=== PATIENT | female | born 1935 | race Caucasian/White ===

== ENCOUNTER 2023-06-12 13:05 | Outpatient (AMB) | payer MEDICARE, BC, SELFPAY ==
[2023-06-12 13:09] VITALS: BP 118/80; PULSE 62; O2SAT 98; BMI 27.9
--- NOTE | 2023-06-12 13:09 | A.OFFVIS_ITS ---
Intake Vital Signs 06/12/23 13:09 Height 5 ft 2 in Weight 152 lb 8 oz BMI 27.9 BP 118/80 Blood Pressure Location Rt brachial Position Sitting Pulse 62 Pulse Source Pulse Oximeter Pulse Oximetry (%) 98 Oxygen Delivery Method Room Air Intake Visit Reasons: [id number] Intake Note: Pt presents as a NPV for dementia. 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 The first episode was 7 months ago she was confused and disoriented- she went to [facility] ER, all her evaluations were inconclusive and the confusion resolve din 6 hrs. her magnesium level was low at that time. 2 weeks later she had another episode lasting 4 hrs - she tested COVID positive at that time. she was diagnosed with dementia 25 years ago and has been on donepezil 10mg since then. she has severe short term memory issues , has trouble following directions comprehending etc. she can take care of herself but does not do any chores around the house. SHe denies any family h/o dementia she has h/u subdural hematoma many years ago.She denies depression or anxiety. No behavior issues. She has mild sleep apnea but could not tolerate CPAP.No hallucinations PFSH Medical History (Updated 06/12/23 @ 14:10 by Brynn Victoria MD) Atrial fibrillation Breast cancer CKD (chronic kidney disease) Confusion Dementia GERD (gastroesophageal reflux disease) HTN (hypertension) Hyperlipidemia Osteoporosis Sick sinus syndrome Surgical History H/O: hysterectomy History of brain surgery Hx of appendectomy Pacemaker Social History Alcohol intake: never Patient Tobacco Use Status: Former Tobacco user Review of Systems Const Reports no additional complaints Eyes Reports blurry vision Card Reports irregular heart rhythm Neuro Reports confusion and Reports memory loss Psych Reports confusion and Reports memory loss Physical Exam Vital Signs: Last Vital Signs Pulse 62 06/12/23 13:09 BP 118/80 06/12/23 13:09 Pulse Ox 98 06/12/23 13:09 Oxygen Delivery Method Room Air 06/12/23 13:09 BMI result Body Mass Index 27.9 Const General: cooperative, healthy appearing, comfortable and confusion Orientation/consciousness: patient oriented x3 and confusion Eyes Pupils: Equal, round and reactive pupils present Neuro General: patient oriented x3, gait normal, tone normal, moves all extremities and confusion Cranial nerves: Yes Facial sensation intact/muscles of mastication intact, Yes Equal, round and reactive pupils present, Yes Bilaterally intact EOM present, Yes Nystagmus not present, Yes Normal facial strength present and Yes Midline tongue present Cognition (Neuro): abnormal cognition Gait exam (Neuro): Antalgic gait present Motor exam (neuro): 5/5 motor strength present throughout and Normal motor muscle tone present throughout Deep tendon reflexes (DTR's): Right triceps reflex intensity grade: 1+, Left triceps reflex intensity grade: 1+, Rt Biceps (C5, C6): 1+, Left biceps reflex intensity grade: 1+, Right brachioradialis reflex intensity grade: 1+, Left brachioradialis reflex intensity grade: 1+, Right patellar reflex intensity grade: 1+ and Left patellar reflex intensity grade: 1+ Coordination: [id number]-[id number] test normal Orientation What is the (year) (season) (date) (day) (month)?: season Where are we (state) (county) (town or city) (hospital) (floor)?: state, hospital/clinic and floor Registration Name of 3 unrelated objects clearly and slowly, then ask patient to repeat all 3 of them. (1st repeat determines score. Make sure they can repeat all three): object 1, object 2 and object 3 Attention & Calculation (CHOOSE ONE) Spell WORLD backwards (DLROW): 3 letters Recall Ask patient to repeat the 3 items from question #3.: object 1 Language Show patient a wristwatch & ask what it is. Repeat for pencil.: watch and pencil Ask the patient to repeat the phrase 'No ifs, ands, or buts' after you.: correct Ask the patient to 'take a piece of paper with their right hand' 'fold paper in half' 'place paper on floor': take paper in right hand and fold paper in half Print the sentence 'CLOSE YOUR EYES' on a piece. If patient actually closes eyes then score.: followed written direction Give patient a blank piece of paper & ask to write a sentence. Score if it contains a noun & verb.: sentence contains subject and verb Ask patient to copy figure of intersecting pentagons exactly. Score if all 10 angles & 2 intersects are included.: all 10 angles present & 2 are intersected Score Score: 19 Assessment & Plan Assessment & Plan (1) Dementia: Code(s): F03.90 - Unspecified dementia, unspecified severity, without behavioral disturbance, psychotic disturbance, mood disturbance, and anxiety (2) Confusion: Comment: likely metabolic Code(s): R41.0 - Disorientation, unspecified Plan Continue aricept 10mg qd EEG to r/o seizures I will trial her on namenda XR 7mg qd Orders: Orders EEG electroencephalogram Today R41.0 - Disorientation, unspecified Medications: New memantine 7 mg PO DAILY 30 ea 2RF Coding Level of Care Code New Pt Level 4 (74478) Diagnoses Dementia F03.90 Confusion R41.0
== END 2023-06-12 13:56 | disposition home or self-care (01) ==
PROVIDERS: Visit Provider Psychiatry & Neurology Neurology
DX: F03.90 Unspecified dementia, unspecified severity, without behavioral disturbance, psychotic disturbance, mood disturbance, and anxiety (principal); R41.0 Disorientation, unspecified
CPT/HCPCS: 99204

== ENCOUNTER → 2023-06-12 13:05 | Outpatient (BNVA) | payer MEDICARE, BC, SELFPAY | PROVIDERS: Visit Provider Psychiatry & Neurology Neurology | DX: F03.90 Unspecified dementia, unspecified severity, without behavioral disturbance, psychotic disturbance, mood disturbance, and anxiety (principal); R41.0 Disorientation, unspecified; I48.91 Unspecified atrial fibrillation; I49.5 Sick sinus syndrome; Z95.0 Presence of cardiac pacemaker | CPT/HCPCS: 99202 ==

== ENCOUNTER 2023-06-28 12:28 | Outpatient (REF) | payer MEDICARE, BC, SELFPAY ==
--- NOTE | 2023-06-28 12:43 | EEG_ITS ---
This is a 16-channel EEG with an EKG lead. The patient is reported awake and confused during the tracing. Background EEG rhythm is 10 to 12 hertz 5 to 20 microvolt posteriorly with frequent movement and muscle artifacts. No obvious sharp wave spikes or paroxysmal tendency noted. Photic stimulation does not produce any significant abnormality. Hyperventilation is not performed. Cardiac lead revealed bradycardia with a rate of about 60 per minute. No definite sharp wave spikes or paroxysmal tendency noted. IMPRESSION: No significant abnormality or any sign of epilepsy noted on this EEG. MD YRN Reis/KENDRA / [id number]
== END 2023-06-28 12:29 | disposition home or self-care (01) ==
LOC: HO.NEURO 12:28
PROVIDERS: PCP Internal Medicine; Visit Provider Psychiatry & Neurology Neurology
DX: R41.0 Disorientation, unspecified (principal)
CPT/HCPCS: 95816

== ENCOUNTER 2023-09-18 12:41 | Outpatient (AMB) | payer MEDICARE, BC, SELFPAY ==
--- NOTE | 2023-09-18 12:58 | A.OFFVIS_ITS ---
Intake Vital Signs 09/18/23 12:59 Respiration 16 Pulse 64 Pulse Source Pulse Oximeter Pulse Oximetry (%) 96 Oxygen Delivery Method Room Air Intake Visit Reasons: 3m f/u Dementia - Conf w/ Intake Note: Pt presents to the office for a 3 month follow up for confusion. She is here with her , Sarahy. He reports her condition is unchanged since her last visit. He reports a change in her meds- she has been take off Coumadin and started on Eliquis. 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 No epsidoes of confusion but her cognition is worse.No change in behavior. she was diagnosed with dementia 25 years ago and has been on donepezil 10mg since then. she has severe short term memory issues , has trouble following directions comprehending etc. she can take care of herself but does not do any chores around the house. SHe denies any family h/o dementia she has h/u subdural hematoma many years ago.She denies depression or anxiety. No behavior issues. She has mild sleep apnea but could not tolerate CPAP.No hallucinations [facility] Medical History (Updated 06/12/23 @ 14:10 by Brynn Victoria MD) Confusion CKD (chronic kidney disease) Osteoporosis Hyperlipidemia Sick sinus syndrome GERD (gastroesophageal reflux disease) Dementia HTN (hypertension) Atrial fibrillation Breast cancer Surgical History History of brain surgery H/O: hysterectomy Pacemaker Hx of appendectomy Social History Alcohol intake: never Patient Tobacco Use Status: Former Tobacco user Review of Systems Neuro Reports confusion Psych Reports confusion Physical Exam Vital Signs: Last Vital Signs Pulse 64 09/18/23 12:59 Resp 16 09/18/23 12:59 Pulse Ox 96 09/18/23 12:59 Oxygen Delivery Method Room Air 09/18/23 12:59 Const General: cooperative, healthy appearing, comfortable and confusion Orientation/consciousness: patient oriented x3 and confusion Eyes Pupils: Equal, round and reactive pupils present Neuro General: patient oriented x3, gait normal, tone normal, moves all extremities and confusion Cranial nerves: Yes Facial sensation intact/muscles of mastication intact, Yes Equal, round and reactive pupils present, Yes Bilaterally intact EOM present, Yes Nystagmus not present, Yes Normal facial strength present and Yes Midline tongue present Cognition (Neuro): abnormal cognition Gait exam (Neuro): Antalgic gait present Motor exam (neuro): 5/5 motor strength present throughout and Normal motor muscle tone present throughout Coordination: [id number]-[id number]-[id number] test normal Assessment & Plan Assessment & Plan (1) Dementia: Code(s): F03.90 - Unspecified dementia, unspecified severity, without behavioral disturbance, psychotic disturbance, mood disturbance, and anxiety (2) Confusion: Comment: likely metabolic Code(s): R41.0 - Disorientation, unspecified Plan Continue aricept 10mg qd EEG normal Increase namenda XR 14mg qd Medications: Changed From memantine 7 mg PO DAILY 30 ea 2RF To memantine 14 mg PO DAILY 30 ea 0RF Coding Level of Care Code Est Pt Level 4 (02291) Diagnoses Dementia F03.90 Confusion R41.0
[2023-09-18 12:59] VITALS: PULSE 64; RESP 16; O2SAT 96
== END 2023-09-18 13:46 | disposition home or self-care (01) ==
PROVIDERS: PCP Internal Medicine; Visit Provider Psychiatry & Neurology Neurology
DX: F03.90 Unspecified dementia, unspecified severity, without behavioral disturbance, psychotic disturbance, mood disturbance, and anxiety (principal); R41.0 Disorientation, unspecified
CPT/HCPCS: 99214

== ENCOUNTER → 2023-09-18 12:41 | Outpatient (BNVA) | payer MEDICARE, BC, SELFPAY | PROVIDERS: PCP Internal Medicine; Visit Provider Psychiatry & Neurology Neurology | DX: F03.90 Unspecified dementia, unspecified severity, without behavioral disturbance, psychotic disturbance, mood disturbance, and anxiety (principal); R41.0 Disorientation, unspecified | CPT/HCPCS: 99212 ==

== ENCOUNTER 2024-04-28 14:17 | Outpatient (AMB) | payer MEDICARE, BC, SELFPAY ==
[2024-04-28 14:23] VITALS: BP 136/78; PULSE 81; RESP 16; O2SAT 97; BMI 28.9
--- NOTE | 2024-04-28 14:23 | MHC.OFFVIS ---
Vital Signs 04/28/24 14:23 Height 5 ft 2 in Weight 158 lb 2 oz BMI 28.9 BP 136/78 Blood Pressure Location Rt brachial Position Sitting Respiration 16 Pulse 81 Pulse Source Pulse Oximeter Pulse Oximetry (%) 97 Oxygen Delivery Method Room Air Intake Visit Reasons: Follow up - LVM w/add Intake Note: Pt presents for 6 month follow up for dementia, confusion. Marina Porter Required: No Allergies No Known Allergies Allergy (Verified 04/28/24 14:23) HPI Comments Details: 88y/o female comes for follow up of dementia. her short term memory is worse and has difficulty comprehending. SHe was in ER last night for confusion.she was dehydrated .CT was negative she has back pain and is on ibuprofen No falls she was diagnosed with dementia 25 years ago and has been on donepezil 10mg since then. she has severe short term memory issues , has trouble following directions comprehending etc. she can take care of herself but does not do any chores around the house. SHe denies any family h/o dementia she has h/u subdural hematoma many years ago.She denies depression or anxiety. No behavior issues. She has mild sleep apnea but could not tolerate CPAP.No hallucinations Her is working with senior services and Assisted living. [facility] Medical History Confusion CKD (chronic kidney disease) Osteoporosis Hyperlipidemia Sick sinus syndrome GERD (gastroesophageal reflux disease) Dementia HTN (hypertension) Atrial fibrillation Breast cancer Surgical History History of brain surgery H/O: hysterectomy Pacemaker Hx of appendectomy Social History Alcohol intake: never Patient Tobacco Use Status: Former Tobacco user Review of Systems Neuro Reports confusion Psych Reports confusion Physical Exam Vital Signs: Last Vital Signs Pulse 81 04/28/24 14:23 Resp 16 04/28/24 14:23 BP 136/78 04/28/24 14:23 Pulse Ox 97 04/28/24 14:23 Oxygen Delivery Method Room Air 04/28/24 14:23 BMI result Body Mass Index 28.9 Const General: cooperative, healthy appearing, comfortable and confusion Orientation/consciousness: patient oriented x3 and confusion Eyes Pupils: Equal, round and reactive pupils present Neuro General: patient oriented x3, gait normal, tone normal, moves all extremities and confusion Cranial nerves: Yes Facial sensation intact/muscles of mastication intact, Yes Equal, round and reactive pupils present, Yes Bilaterally intact EOM present, Yes Nystagmus not present, Yes Normal facial strength present and Yes Midline tongue present Cognition (Neuro): abnormal cognition Gait exam (Neuro): Antalgic gait present Motor exam (neuro): 5/5 motor strength present throughout and Normal motor muscle tone present throughout Coordination: [id number]-[id number]-[id number] test normal Assessment & Plan Assessment & Plan (1) Dementia: Code(s): F03.90 - Unspecified dementia, unspecified severity, without behavioral disturbance, psychotic disturbance, mood disturbance, and anxiety Category: Medical (2) Confusion: Comment: likely metabolic Code(s): R41.0 - Disorientation, unspecified Category: Medical Plan Continue aricept 10mg qd continue namenda XR 14mg qd Coding Level of Care Code Est Pt Level 4 (83528) Diagnoses Dementia F03.90 Confusion R41.0
== END 2024-04-28 14:49 | disposition home or self-care (01) ==
PROVIDERS: PCP Internal Medicine; Visit Provider Psychiatry & Neurology Neurology
DX: F03.90 Unspecified dementia, unspecified severity, without behavioral disturbance, psychotic disturbance, mood disturbance, and anxiety (principal); R41.0 Disorientation, unspecified
CPT/HCPCS: 99214

== ENCOUNTER → 2024-04-28 14:17 | Outpatient (BNVA) | payer MEDICARE, BC, SELFPAY | PROVIDERS: PCP Internal Medicine; Visit Provider Psychiatry & Neurology Neurology | DX: F03.90 Unspecified dementia, unspecified severity, without behavioral disturbance, psychotic disturbance, mood disturbance, and anxiety (principal); R41.0 Disorientation, unspecified | CPT/HCPCS: 99212 ==

== ENCOUNTER 2025-04-07 09:01 | Outpatient (REF) | payer MEDICARE, BC, SELFPAY ==
--- NOTE | ~2025-04-07 | CT_ITS ---
EXAMINATION: CT HEAD WITHOUT CONTRAST CLINICAL INFORMATION: R41.0 - Disorientation, unspecifiedhistory of subdural hematoma. COMPARISON: None available. TECHNIQUE: Contiguous axial imaging was performed from the skull base to vertex without intravenous administration of contrast. This CT examination was performed using dose optimization techniques as appropriate, variously including the following: *Automated exposure control *Adjustment of mA and/or kV according to patient size (this includes techniques or standardized protocols for targeted exams where dose is matched to indication/reason for exam; i.e. extremities or head) *Use of iterative reconstruction technique DLP: 588 mGy-cm FINDINGS: No acute intracranial hemorrhage. Left frontoparietal zachery hole and extra-axial calcifications likely in the subdural compartment just lateral from the left sylvian fissure left frontal temporal convexity.. No acute fracture, bony calvarium. There is a 5 mm extra-axial hyperdensity/partially calcified soft tissue attenuation right frontoparietal convexity. Prominence of the extra-axial CSF spaces cerebral sulci bifrontal and bitemporal lobes. Bilateral multifocal patchy and confluent deep periventricular white matter hypodensities involving centrum semiovale and jarvis radiata. Old lacunar infarct, basal ganglia and extracapsular. Calcified plaques in the V4 segments of the vertebral arteries and cavernous supraclinoid segments both ICAs. Posterior cranial fossa contents demonstrated no acute intracranial hemorrhage. Craniocervical junction demonstrates normal position of the cerebellar tonsils. Sellar/suprasellar region demonstrated no gross masses. No air-fluid levels in the paranasal sinuses. Tympanic cavities and mastoid cells are aerated. Degenerative changes in the left temporal mandibular joint. CT/CT head/brain wo IV con IMPRESSION: No acute intracranial hemorrhage. Small vessel occlusive disease. Bifrontal/bitemporal lobe atrophy. 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 Electronically signed by: Schuyler Sultana MD 04/07/2025 10:33 AM EDT
--- OUTSIDE RECORDS SUMMARY | 2025-04-07 09:29 | XMS_ITS | Clinical Summary ---
Author Organization [facility] Address [address] [address] Phone Care Team Providers Care Glass Curvature Gauger Name Role Phone Diony Ga Primary Care Provider [phone] Allergies Active Allergy Reactions Criticality Noted Date Comments Codeine Other (see comments) 12/27/2022 Fexofenadine 12/27/2022 Other reaction(s): shaking Nitrofurantoin Other (see comments) 12/27/2022 Medications dilTIAZem (TIAZAC) 180 MG 24 hr capsule 3 Active metoprolol tartrate (LOPRESSOR) 50 MG tablet Take 50 mg by mouth 6 Active SIMVASTATIN PO Take 40 mg by mouth 1 Active valsartan (DIOVAN) 160 MG tablet Take 160 mg by mouth 1 (one) time each day Active donepezil (ARICEPT) 10 MG tablet Take 10 mg by mouth every night Active Multiple Vitamin (multivitamin) capsule Take 1 capsule by mouth 1 (one) time each day Active apixaban (Eliquis) 2.5 MG tablet Take 2.5 mg by mouth in the morning and 2.5 mg in the evening. Active Memantine HCl ER 14 MG capsule sustained-rele ase 24 hr Take 14 mg by mouth 1 (one) time each day 4 Active Denosumab (Prolia) 60 MG/ML solution prefilled syringe Inject 60 mg under the skin 5 Active Coenzyme Q10 100 MG tablet Take by mouth Active cyanocobalamin (VITAMIN B-12) 100 MCG tablet Take 50 mcg by mouth 1 (one) time each day Active Coconut Oil ([facility] Coconut Oil) 1000 MG capsule Take by mouth Active alendronate (FOSAMAX) 70 MG tablet 3 03/24/20 25 Discontinued( Discontinued by another clinician (does not appear on AVS)) Active Problems Problem Noted Date Diagnosed Date Tumor finding 12/27/2022 Neoplasm of breast 12/27/2022 Overview (08/12/2024): Replacing diagnoses that were inactivated after the 08/12/24 Regulatory Import Essential (primary) hypertension 12/27/2022 Hypercholesterolemia 12/27/2022 History of cerebrovascular accident 12/27/2022 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 Stable. Atrial fibrillation 10/12/2021 Overview (12/27/2022): Last Assessment & Plan: Rate is controlled on BB and CCB, anticoagulated on warfarin. She understands risks and benefits of anticoagulation and wished to continue. Encounters Date Type Department Care Team Description 03/24/2025 11:30 AM EDT Office Visit [facility] [address] [address] Deirdre Banuelos ARNP Stage 3b chronic kidney disease (HCC) (Primary Dx); Essential (primary) hypertension 03/12/2025 Orders Only [facility] [place] [id number] [phone] Deirdre Banuelos ARNP Stage 3b chronic kidney disease (HCC); Essential (primary) hypertension from Last 3 Months Immunizations Immunization Administration Dates Next Due Pfizer SARS-COV-2 01/13/2021,12/23/2020 Family History Medical History Relation Comments Heart disease Father Relation Status Comments Father Social History Tobacco Use Types Packs/Day Years Used Date Smoking Tobacco: Never Smokeless Tobacco: Never Tobacco Cessation:Counseling Given: No Alcohol Use Standard Drinks/Week Comments Never 0 (1 standard drink = 0.6 oz pur e alcohol) Comments Unknown Sex and Gender Information Value Date Recorded Sex Assigned at Not on file Legal Sex Female 8:36 AM EST Gender Identity Not on file Sexual Orientation Not on file Last Filed Vital Signs Vital Sign Reading Time Taken Comments Blood Pressure 120/60 03/24/2025 11:53 AM EDT Pulse 70 03/24/2025 11:29 AM EDT Temperature - - Respiratory Rate - - Oxygen Saturation 98% 03/24/2025 11:29 AM EDT Inhaled Oxygen Concentration - - Weight 67.1 kg (148 lb) 03/24/2025 11:29 AM EDT Height - - Body Mass Index - - Plan of Treatment Upcoming Encounters Date Type Department Care Team (Late st Contact Info) Description 09/22/2025 1:00 PM EST Office Visit [facility] [address] [phone] Deirdre Banuelos ARNP [address] [address] Health Maintenance Due Date Last Done Comments Pneumococcal Vaccine: 50+ Ye ars (1 of 2 - PCV) 1954 Influenza Vaccine (Season Ended) 2025 Hepatitis B Vaccine Aged Out No longe r eligible based on patient's age to complete this topic Procedures Procedure Name Priority Date/Time Associated Diagnosis Comments PROTEIN, URINE, RANDOM Routine 03/19/2025 3:44 PM EDT CREATININE, URINE, RANDOM Routine 03/19/2025 3:44 PM EDT CBC WITH AUTO DIFFERENTIAL Routine 03/18/2025 11:00 AM EDT RENAL FUNCTION PANEL Routine 03/18/2025 11:00 AM EDT Stage 3b chronic kidney disease (HCC) Essential (primary) hypertension PTH, INTACT Routine 03/18/2025 11:00 AM EDT Stage 3b chronic kidney disease (HCC) Essential (primary) hypertension from Last 3 Months Results * Protein, urine, random (03/19/2025 3:44 PM EDT) Protein, Ur 14 mg/dL [facility] 03/19/2025 3:44 PM EDT 03/19/2025 7:17 PM EDT [facility] URINE ORDERABLES Final Result Performing Organization Address City/[facility]/ZIP Co de Phone Number [facility] [address] [place] [address] * Creatinine, urine, random (03/19/2025 3:44 PM EDT) Creatinine, Urine 68.0 mg/dL [facility] 03/19/2025 3:44 PM EDT 03/19/2025 7:17 PM EDT us [facility] URINE ORDERABLES Final Result Performing Organization Address City/[facility] Co de Phone Number [facility] [address] [place] [address] * (ABNORMAL) CBC auto differential (03/18/2025 11:00 AM EDT) WBC 5.1 4.8 - 10.8 K/[facility] RBC 4.30 3.80 - 4.80 M/[facility] Hgb 12.1 11.5 - 16.0 g/dL [facility] Hematocrit 38.5 35.0 - 47.0 % [facility] MCV 90.0 79.0 - 98.0 FL [facility] MCH 28.3 27.0 - 32.0 pcg [facility] MCHC 31.4(L) 32.0 - 37.0 g/dL [facility] RDW 14.6 11.0 - 15.0 % [facility] Platelets 202 130 - 400 K/[facility] MPV 10.8 7.0 - 11.0 FL [facility] nRBC Count 0.0 <1.0 % [facility] NRBC Absolute 0.00 <0.10 K/[facility] Bands Relative 56.8 % [facility] Lymphocyte Realative Percent 26.7 % [facility] Monocyte Relative Percent 11.4 % [facility] Eosinophil Relative Percent 3.1 % [facility] Basophils Relative Diff 1.8 % [facility] Immature Granulocytes 0.2 % [facility] Neutrophils Absolute 2.89 1.50 - 7.00 K/[facility] Lymphocytes Absolute 1.36 1.00 - 5.00 K/[facility] Monocytes Absolute 0.58 0.20 - 1.00 [facility] Eosinophil Absolute 0.16 0.00 - 0.50 [facility] Basophil ABS 0.09 0.00 - 0.20 [facility] Immature Grans (Absolute) 0.01 0.00 - 0.03 K/[facility] 03/18/2025 11:0 0 AM EDT 03/18/2025 3:03 PM EDT us Deirdre AGUILAR LAB BLOOD ORDERABLES Final Result [facility] [address] [place] [address] * (ABNORMAL) PTH, intact (03/18/2025 11:00 AM EDT) PTH 97.3(H) 18.5 - 88.0 pcg/mL [facility] Blood specimen (specimen) Venous blood / Unknown 03/18/2025 11:00 AM EDT 03/18/2025 3:03 PM EDT Deirdre Banuelos [facility] BLOOD ORDERABLES Final Result G[facility] [address] [place] [address] * (ABNORMAL) Renal function panel (03/18/2025 11:00 AM EDT) Pathologist [facility] Sodium 143 133 - 145 mmol/L [facility] Potassium 3.9 3.5 - 5.5 mmol/L [facility] Chloride 109 96 - 110 mmol/L [facility] Bicarbonate (CO2) 26 21 - 32 mmol/L [facility] Anion Gap 8 3 - 11 [facility] Glucose 93 70 - 100 mg/dL [facility] BUN 20 5 - 25 mg/dL [facility] Creatinine Serum 1.40(H) 0.50 - 1.10 mg/dL [facility] eGFR 36(L) >=60 mL/min/1. 73m2 [facility] Comment:Calculation based on the Chronic Kidney Disease Epidemiology Collaboration (CKD-EPI) equation refit without adjustment for race. BUN/Creatinine Ratio 14.3 [facility] Albumin 3.4 3.2 - 5.0 g/dL [facility] Calcium 9.9 8.5 - 10.5 mg/dL [facility] Phosphorus 3.5 2.5 - 4.5 mg/dL [facility] Blood specimen (specimen) Venous blood / Unknown 03/18/2025 11:00 AM EDT 03/18/2025 3:03 PM EDT Deirdre Banuelos [facility] LAB BLOOD ORDERABLES Final Result [facility] [address] [place] [address] from Last 3 Months Insurance Medicare [facility] Medicare [facility] Care Teams Glass Curvature Gauger Relationship Specialty Start Date End Date Diony Ga DO [address] [place] [address] PCP - General Internal Medicine 11/16/22
== END 2025-04-07 09:02 | disposition home or self-care (01) ==
LOC: HO.CT 09:01
PROVIDERS: PCP Internal Medicine; Visit Provider Psychiatry & Neurology Neurology
DX: R41.0 Disorientation, unspecified (principal); R51.9 Headache, unspecified; Z86.79 Personal history of other diseases of the circulatory system
CPT/HCPCS: 70450

== ENCOUNTER → 2025-04-07 09:02 | Outpatient (BNV) | payer MEDICARE, BC, SELFPAY | PROVIDERS: PCP Internal Medicine; Visit Provider Radiology Diagnostic Radiology | DX: I67.89 Other cerebrovascular disease (principal) | CPT/HCPCS: 70450 ==

== ENCOUNTER 2025-04-27 12:11 | Outpatient (AMB) | payer MEDICARE, BC, SELFPAY ==
--- NOTE | 2025-04-27 12:13 | A.OFFVIS_ITS ---
Vital Signs 04/27/25 12:14 Height 5 ft 2 in Weight 147 lb BMI 26.9 BP 110/72 Blood Pressure Location Rt brachial Position Sitting Pulse 60 Pulse Source Pulse Oximeter Pulse Oximetry (%) 98 Oxygen Delivery Method Room Air Intake Visit Reasons: Follow up - LVM w/add Intake Note: Patient following up for dementia Allergies No Known Allergies Allergy (Verified 04/27/25 12:17) Medication List - Last Reconciled 04/27/25 by Brynn Victoria MD apixaban (Eliquis) 2.5 mg PO BID denosumab (Prolia) 60 mg subcut [id number] diltiazem HCl ER 180 mg PO DAILY donepezil 10 mg PO DAILY memantine 14 mg PO DAILY 90 days metoprolol tartrate 50 mg PO BID multivitamin 1 tab PO DAILY simvastatin 40 mg PO BEDTIME valsartan 160 mg PO DAILY HPI Comments Details: 89y/o female comes for follow up of dementia and headaches CT head was normal she reports a frontal dull pain for past 4 mths. according to her she watches TV all day and she also does not drink enough water. she lives with her . He does all the chores. History from last visit- her short term memory is worse and has difficulty comprehending. SHe was in ER last night for confusion.she was dehydrated .CT was negative she has back pain and is on ibuprofen No falls she was diagnosed with dementia 25 years ago and has been on donepezil 10mg since then. she has severe short term memory issues , has trouble following directions comprehending etc. she can take care of herself but does not do any chores around the house. SHe denies any family h/o dementia she has h/u subdural hematoma many years ago.She denies depression or anxiety. No behavior issues. She has mild sleep apnea but could not tolerate CPAP.No hallucinations Her is working with senior services and Assisted living. [facility] Medical History (Updated 04/27/25 @ 12:57 by Brynn Victoria MD) Chronic headaches Cervicalgia H/O subdural hemorrhage Headache Confusion CKD (chronic kidney disease) Osteoporosis Hyperlipidemia Sick sinus syndrome GERD (gastroesophageal reflux disease) Dementia HTN (hypertension) Atrial fibrillation Breast cancer Surgical History History of brain surgery H/O: hysterectomy Pacemaker Hx of appendectomy Social History Alcohol intake: never Patient Tobacco Use Status: Former Tobacco user Review of Systems Neuro Reports confusion Psych Reports confusion Physical Exam Vital Signs: Last Vital Signs Pulse 60 04/27/25 12:14 BP 110/72 04/27/25 12:14 Pulse Ox 98 04/27/25 12:14 Oxygen Delivery Method Room Air 04/27/25 12:14 BMI result Body Mass Index 26.9 Const General: cooperative, healthy appearing, comfortable and confusion Orientation/consciousness: patient oriented x3 and confusion Eyes Pupils: Equal, round and reactive pupils present Neuro General: patient oriented x3, gait normal, tone normal, moves all extremities and confusion Cranial nerves: Yes Facial sensation intact/muscles of mastication intact, Yes Equal, round and reactive pupils present, Yes Bilaterally intact EOM present, Yes Nystagmus not present, Yes Normal facial strength present and Yes Midline tongue present Cognition (Neuro): abnormal cognition Gait exam (Neuro): Antalgic gait present Motor exam (neuro): 5/5 motor strength present throughout and Normal motor muscle tone present throughout Coordination: [id number] test normal Results Reviewed Results Reviewed: CT - brain 03/2025 No acute intracranial hemorrhage. Small vessel occlusive disease. Bifrontal/bitemporal lobe atrophy. 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 Assessment & Plan Assessment & Plan (1) Dementia: Comment: progressed Code(s): F03.90 - Unspecified dementia, unspecified severity, without behavioral disturbance, psychotic disturbance, mood disturbance, and anxiety Category: Medical (2) Confusion: Comment: likely metabolic Code(s): R41.0 - Disorientation, unspecified Category: Medical (3) Cervicalgia: Code(s): M54.2 - Cervicalgia Category: Medical (4) Chronic headaches: Code(s): R51.9 - Headache, unspecified; G89.29 - Other chronic pain Category: Medical Qualifiers: Headache type: unspecified Intractability: not intractable Qualified Code(s): R51.9 - Headache, unspecified; G89.29 - Other chronic pain Plan Continue aricept 10mg qd continue namenda XR 14mg qd He is discussing with insurance and will call senior services for MANAGER [employer] services PT for neck pain and headaches Orders: Orders PT Evaluation and Treatment Today M54.2 - Cervicalgia Referrals [facility] Referral G89.29 - Other chronic pain, M54.2 - Cervicalgia, R51.9 - Headache, unspecified Coding Level of Care Code Est Pt Level 4 (83142) Complex EM visit Add On G2211 Diagnoses Dementia F03.90 Confusion R41.0 Cervicalgia M54.2 Chronic nonintractable headache, unspecified headache type R51.9; G89.29 Headache type: unspecified Intractability: not intractable
[2025-04-27 12:14] VITALS: BP 110/72; PULSE 60; O2SAT 98; BMI 26.9
--- OUTSIDE RECORDS SUMMARY | 2025-04-27 13:35 | XMS_ITS | Clinical Summary ---
Author Organization [facility] Address [address] [address] Phone Care Team Providers Care Award Clerk Name Role Phone Diony Ga Primary Care Provider [phone] Allergies Active Allergy Reactions Criticality Noted Date Comments Codeine Other (see comments) 12/27/2022 Fexofenadine 12/27/2022 Other reaction(s): shaking Nitrofurantoin Other (see comments) 12/27/2022 Medications dilTIAZem (TIAZAC) 180 MG 24 hr capsule 11/28/2022 Activ e metoprolol tartrate (LOPRESSOR) 50 MG tablet Take 50 mg by mouth 01/07/2016 Active SIMVASTATIN PO Take 40 mg by mouth 10/05/2011 Active valsartan (DIOVAN) 160 MG tablet Take [...] Active Memantine HCl ER 14 MG capsule sustained-relea se 24 hr Take 14 mg by mouth 1 (one) time each day 07/03/2024 Active Denosumab (Prolia) 60 MG/ML solution prefilled syringe Inject 60 mg under the skin 11/13/2024 Active Coenzyme Q10 100 MG tablet Take by mouth Active cyanocobalamin (VITAMIN B-12) 100 MCG tablet Take 50 mcg by mouth 1 (one) time each day Active Coconut Oil ([facility] Coconut Oil) 1000 MG capsule Take by mouth Active Active Problems Problem Noted Date Diagnosed Date [...] Office Visit [facility] 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 [address] [place] [address] Deirdre Banuelos ARNP Stage 3b chronic kidney [...] Office Visit [facility] [address] [address] Deirdre Banuelos ARNP [address] [address] Health Maintenance Due Date Last [...] 3:44 PM EDT) Protein, Ur 14 mg/dL [facility] 03/19/2025 3:44 PM EDT 03/19/2025 7:17 PM EDT [facility] URINE ORDERABLES Final Result Performing Organization Address City/[facility]/ZIP Co de Phone Number [facility] [address] [place] [address] * Creatinine, urine, random (03/19/2025 3:44 PM EDT) [facility] Creatinine, Urine 68.0 mg/dL [facility] 03/19/2025 3:44 PM EDT 03/19/2025 7:17 PM EDT [facility] URINE ORDERABLES Final Result Performing Organization Address City/[facility] Co de Phone Number [facility] [address] [place] [address] * (ABNORMAL) CBC auto differential (03/18/2025 11:00 AM EDT) [facility] WBC 5.1 4.8 - 10.8 K/mcL [facility] RBC 4.30 3.80 - 4.80 M/[facility] Hgb 12.1 11.5 - 16.0 g/dL [facility] Hematocrit 38.5 35.0 - 47.0 % [facility] MCV 90.0 79.0 - 98.0 FL [facility] MCH 28.3 27.0 - 32.0 pcg [facility] MCHC 31.4(L) 32.0 - 37.0 g/dL [facility] RDW 14.6 11.0 - 15.0 % [facility] Platelets 202 130 - 400 K/[facility] MPV 10.8 7.0 - 11.0 FL [facility] nRBC Count 0.0 <1.0 % [facility] NRBC Absolute 0.00 <0.10 K/[facility] Bands Relative 56.8 % [facility] Lymphocyte Realative Percent 26.7 % [facility] Monocyte Relative Percent 11.4 % [facility] Eosinophil Relative Percent 3.1 % [facility] Basophils Relative Diff 1.8 % [facility] Immature Granulocytes 0.2 % [facility] Neutrophils Absolute 2.89 1.50 - 7.00 K/[facility] Lymphocytes Absolute 1.36 1.00 - 5.00 K/[facility] Monocytes Absolute 0.58 0.20 - 1.00 K/[facility] Eosinophil Absolute 0.16 0.00 - 0.50 K/[facility] Basophil ABS 0.09 0.00 - 0.20 K/[facility] Immature Grans (Absolute) 0.01 0.00 - 0.03 K/[facility] 03/18/2025 11:0 0 AM EDT 03/18/2025 3:03 PM EDT us Deirdre Banuelos [facility] BLOOD ORDERABLES Final Result [facility] [address] [place] [address] * (ABNORMAL) PTH, intact (03/18/2025 11:00 AM EDT) PTH 97.3(H) 18.5 - 88.0 pcg/mL [facility] Blood specimen (specimen) Venous blood / Unknown 03/18/2025 11:00 AM EDT 03/18/2025 3:03 PM EDT us Deirdre Banuelos [facility] BLOOD ORDERABLES Final Result GABRIELLE [facility] [address] [place] [address] * (ABNORMAL) Renal function panel (03/18/2025 11:00 AM EDT) Sodium 143 133 - 145 mmol/L [facility] Potassium 3.9 3.5 - 5.5 mmol/L [facility] Chloride 109 96 - 110 mmol/L [facility] Bicarbonate (CO2) 26 21 - 32 mmol/L [facility] Anion Gap 8 3 - 11 [facility] Glucose 93 70 - 100 mg/dL [facility] BUN 20 5 - 25 mg/dL [facility] Creatinine Serum 1.40(H) 0.50 - 1.10 mg/dL [facility] eGFR 36(L) >=60 mL/min/1. 73m2 [facility] Comment:Calculation based on the Chronic Kidney Disease Epidemiology Collaboration (CKD-EPI) equation refit without adjustment for race. BUN/Creatinine Ratio 14.3 [facility] Albumin 3.4 3.2 - 5.0 g/dL [facility] Calcium 9.9 8.5 - 10.5 mg/dL [facility] Phosphorus 3.5 2.5 - 4.5 mg/dL [facility] Blood specimen (specimen) Venous blood / Unknown 03/18/2025 11:00 AM EDT 03/18/2025 3:03 PM EDT Deirdre Banuelos [facility] BLOOD ORDERABLES Final Result Performing Organization Address City/State/[facility] Co de Phone Number GABRIELLE PAULA [facility] ([facility] [address] [place] [address] from Last 3 Months Insurance Medicare [facility] Medicare [facility] Care Teams Award Clerk Relationship Specialty Start Date End Date Diony Ga DO [address] [place] [address] PCP - General Internal Medicine 11/16/22
== END 2025-04-27 13:04 | disposition home or self-care (01) ==
LOC: HO.HSMS 12:12
PROVIDERS: PCP Internal Medicine; Visit Provider Psychiatry & Neurology Neurology
DX: F03.90 Unspecified dementia, unspecified severity, without behavioral disturbance, psychotic disturbance, mood disturbance, and anxiety (principal); R41.0 Disorientation, unspecified; M54.2 Cervicalgia; R51.9 Headache, unspecified; G89.29 Other chronic pain
CPT/HCPCS: 99214; G2211

== ENCOUNTER → 2025-04-27 12:11 | Outpatient (BNVA) | payer MEDICARE, BC, SELFPAY | PROVIDERS: PCP Internal Medicine; Visit Provider Psychiatry & Neurology Neurology | DX: F03.90 Unspecified dementia, unspecified severity, without behavioral disturbance, psychotic disturbance, mood disturbance, and anxiety (principal); R41.0 Disorientation, unspecified; M54.2 Cervicalgia; R51.9 Headache, unspecified; G89.29 Other chronic pain | CPT/HCPCS: 99212 ==

== ENCOUNTER → 2025-05-11 23:59 | Outpatient (BNV) | payer MEDICARE, BC, SELFPAY | PROVIDERS: PCP Internal Medicine; Visit Provider Psychiatry & Neurology Neurology | DX: M54.2 Cervicalgia (principal); N18.9 Chronic kidney disease, unspecified; I48.91 Unspecified atrial fibrillation; R51.9 Headache, unspecified; I12.9 Hypertensive chronic kidney disease with stage 1 through stage 4 chronic kidney disease, or unspecified chronic kidney disease | CPT/HCPCS: G0180 ==

== ENCOUNTER 2025-10-29 11:20 | Outpatient (AMB) | payer MEDICARE, BC, SELFPAY ==
[2025-10-29 11:22] VITALS: BP 138/76; PULSE 69; O2SAT 96; BMI 26.7
--- NOTE | 2025-10-29 11:22 | A.OFFVIS_ITS ---
Vital Signs 10/29/25 11:22 Height 5 ft 2 in Weight 146 lb 4 oz BMI 26.7 BP 138/76 Blood Pressure Location Rt brachial Position Sitting Pulse 69 Pulse Source Pulse Oximeter Pulse Oximetry (%) 96 Oxygen Delivery Method Room Air Intake Visit Reasons: 6 mnts f/u appt Intake Note: Follow up Cervicalgia, dementia, confusion and chronic headache Manager Of Sales Required: No Accompanied by: Spouse Allergies No Known Allergies Allergy (Verified 10/29/25 11:22) Medication List - Last Reconciled 10/29/25 by Brynn Victoria MD apixaban (Eliquis) 2.5 mg PO BID denosumab (Prolia) 60 mg subcut [id number] diltiazem HCl ER 180 mg PO DAILY donepezil 10 mg PO DAILY memantine 14 mg PO DAILY metoprolol tartrate 50 mg PO BID multivitamin 1 tab PO DAILY simvastatin 40 mg PO BEDTIME valsartan 160 mg PO DAILY HPI Comments Details: 89y/o female comes for follow up of dementia and headaches Her says she is worse- they have help 3 days a week .Patient resists help . CT head was normal the headaches have decreased significantly after PT she does not drink water. she lives with her . He does all the chores. History from initial visit-2022 her short term memory is worse and has difficulty comprehending. SHe was in ER last night for confusion.she was dehydrated .CT was negative she has back pain and is on ibuprofen No falls she was diagnosed with dementia 25 years ago and has been on donepezil 10mg since then. she has severe short term memory issues , has trouble following directions comprehending etc. she can take care of herself but does not do any chores around the house. SHe denies any family h/o dementia she has h/u subdural hematoma many years ago.She denies depression or anxiety. No behavior issues. She has mild sleep apnea but could not tolerate CPAP.No hallucinations Her is working with senior services and Assisted living. [facility] Medical History Chronic headaches Cervicalgia H/O subdural hemorrhage Headache Confusion CKD (chronic kidney disease) Osteoporosis Hyperlipidemia Sick sinus syndrome GERD (gastroesophageal reflux disease) Dementia HTN (hypertension) Atrial fibrillation Breast cancer Surgical History History of brain surgery H/O: hysterectomy Pacemaker Hx of appendectomy Social History Alcohol intake: never Patient Tobacco Use Status: Former Tobacco user Review of Systems Neuro Reports confusion Psych Reports confusion Physical Exam Vital Signs: Last Vital Signs Pulse 69 10/29/25 11:22 BP 138/76 10/29/25 11:22 Pulse Ox 96 10/29/25 11:22 Oxygen Delivery Method Room Air 10/29/25 11:22 BMI result Body Mass Index 26.7 Const General: cooperative, healthy appearing, comfortable and confusion Orientation/consciousness: patient oriented x3 and confusion Eyes Pupils: Equal, round and reactive pupils present Neuro General: patient oriented x3, gait normal, tone normal, moves all extremities and confusion Cranial nerves: Yes Facial sensation intact/muscles of mastication intact, Yes Equal, round and reactive pupils present, Yes Bilaterally intact EOM present, Yes Nystagmus not present, Yes Normal facial strength present and Yes Midline tongue present Cognition (Neuro): abnormal cognition Gait exam (Neuro): Antalgic gait present Motor exam (neuro): 5/5 motor strength present throughout and Normal motor muscle tone present throughout Coordination: [id number] test normal Assessment & Plan Assessment & Plan (1) Dementia: Comment: progressed Code(s): F03.90 - Unspecified dementia, unspecified severity, without behavioral disturbance, psychotic disturbance, mood disturbance, and anxiety Category: Medical (2) Confusion: Comment: likely metabolic Code(s): R41.0 - Disorientation, unspecified Category: Medical (3) Cervicalgia: Code(s): M54.2 - Cervicalgia Category: Medical (4) Chronic headaches: Code(s): R51.9 - Headache, unspecified; G89.29 - Other chronic pain Category: Medical Qualifiers: Headache type: unspecified Intractability: not intractable Qualified Code(s): R51.9 - Headache, unspecified; G89.29 - Other chronic pain Plan Continue aricept 10mg qd continue namenda XR 14mg qd- consider stopping if she advances. He is discussing with insurance and will call senior services for [employer]ENCE [employer]PER[employer] services Continue neck exercises. Coding Level of Care Code Est Pt Level 4 (53157) Diagnoses Dementia F03.90 Confusion R41.0 Cervicalgia M54.2 Chronic nonintractable headache, unspecified headache type R51.9; G89.29 Headache type: unspecified Intractability: not intractable
--- OUTSIDE RECORDS SUMMARY | 2025-10-29 14:53 | XMS_ITS | Encounter Summary ---
Author Organization [facility] Address [address] [place] [address] Care Team Providers Care Convention Services Manager Name Role Phone Diony Ga DO Primary Care Provider [phone] Encounter Details Date Type Department Care Team (Late st Contact Info) Description 09/10/2025 Results Follow-Up [facility] [address] [facility] [address] [place] [address] Claudia Fuentes NP [address] [place] [address] [address] [place] [address] Social History Tobacco Use Types Packs/Day Years Used Date Smoking Tobacco: Former Smokeless Tobacco: Never Alcohol Use Standard Drinks/Week Comments Never 0 (1 standard drink = 0.6 oz pur e alcohol) Comments Unknown Sex and Gender Information Value Date Recorded Sex Assigned at Not on file Legal Sex Female 2:33 PM EDT Gender Identity Not on file Sexual Orientation Not on file documented as of this encounter Functional Status * Are you deaf or do you have serious difficulty hearing? Answer Date of Assessment Author No 01/30/2025 5:05 PM EDT Nicole Ramey RN * Are you blind or do you have serious difficulty seeing, even when wearing glasses? Answer Date of Assessment Author No 01/30/2025 5:05 PM EDT Nicole Ramey RN * Do you have serious difficulty walking or climbing stairs? Answer Date of Assessment Author No 01/30/2025 5:05 PM EDT Nicole Ramey RN * Do you have serious difficulty dressing or bathing? Answer Date of Assessment Author No 01/30/2025 5:05 PM EDT Nicole Ramey RN * Because of a physical, mental, or emotional condition, do you have serious difficulty doing errandsalone such as visiting the doctor? Answer Date of Assessment Author No 01/30/2025 5:05 PM EDT Nicole Ramey RN documented as of this encounter Mental Status * Because of a physical, mental, or emotional condition, do you have serious difficulty concentrating, remembering, or making decisions? (5 years old or older) Answer Entry Date Author Yes 01/30/2025 5:05 PM EDT Nicole Ramey RN documented in this encounter Plan of Treatment Upcoming Encounters Date Type Department Care Team (Late st Contact Info) Description 09/01/2026 1:30 PM EDT Ancillary Procedure [facility] [address] [facility] [address] [place] [address] documented as of this encounter Visit Diagnoses Not on filedocumented in this encounter Care Teams Convention Services Manager Relationship Specialty Start Date End Date Diony Ga DO [address] [place] [phone] PCP - General 09/26/12 documented as of this encounter
--- OUTSIDE RECORDS SUMMARY | 2025-10-29 14:53 | XMS_ITS | Clinical Summary ---
Author Organization [facility] Address [address] [address] Phone Care Team Providers Care Label Cutter Name Role Phone Diony Ga DO Primary Care Provider [phone] Allergies Active Allergy Reactions Criticality Noted Date [...] Encounters Date Type Department Care Team Description 09/15/2025 1:00 PM EST Office Visit [facility] 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 [address] [address] Deirdre Banuelos ARNP Stage 3b chronic kidney [...] Sign Reading Time Taken Comments Blood Pressure 130/70 09/15/2025 1:02 PM EST Pulse 61 09/15/2025 1:02 PM EST Temperature - - Respiratory Rate - - Oxygen Saturation 98% 09/15/2025 1:02 PM EST Inhaled Oxygen Concentration - - Weight 65.8 kg (145 lb) 09/15/2025 1:02 PM EST Height - - Body Mass Index - - Plan of Treatment Upcoming Encounters Date Type Department Care Team (Late st Contact Info) Description 03/15/2026 1:30 PM EDT Office Visit [facility] [address] [phone] Deirdre Banuelos ARNP [address] [phone] Health Maintenance Due Date Last Done Comments Pneumococcal Vaccine: 50+ Ye ars (1 of 2 - PCV) 1954 Influenza Vaccine (#1) 2025 Hepatitis B Vaccine Aged Out No longe r eligible based on patient's age to complete this topic Procedures Procedure Name Priority Date/Time Associated Diagnosis Comments PROTEIN / CREATININE RATIO, URINE Routine 09/10/2025 12:22 PM EDT Stage 3b chronic kidney disease (HCC) Essential (primary) hypertension URINE ALBUMIN / CREATININE RATIO Routine 09/10/2025 12:22 PM EDT Stage 3b chronic kidney disease (HCC) Essential (primary) hypertension VITAMIN D 25 HYDROXY Routine 09/10/2025 12:06 PM EDT Stage 3b chronic kidney disease (HCC) Essential (primary) hypertension RENAL FUNCTION PANEL Routine 09/10/2025 12:06 PM EDT Stage 3b chronic kidney disease (HCC) Essential (primary) hypertension PTH, INTACT Routine 09/10/2025 12:06 PM EDT Stage 3b chronic kidney disease (HCC) Essential (primary) hypertension from Last 3 Months Results * Urine Protein / creatinine ratio (09/10/2025 12:22 PM EDT) Protein, Ur 20 mg/dL [facility] Urine Protein/Creati nine Ratio 0.10 <=0.20 [facility] Creatinine, Urine 195.0 mg/dL [facility] Urine specimen (specimen) Urine specimen obtained by clean catch procedure / Unknown 09/10/2025 12:22 PM EDT 09/10/2025 2:09 PM EDT [facility] URINE ORDERABLES Final Result Performing Organization Address [facility] Co de Phone Number [facility] [address] [place] [address] * Urine Albumin / Creatinine Ratio (09/10/2025 12:22 PM EDT) Creatinine, Urine 195.0 mg/dL [facility] Microalbumin Urine Random 11.7 0.0 - 29.0 mg/L [facility] Microalbumin/Crea tinine Ratio 6 <30 mg/g [facility] Urine specimen (specimen) Urine specimen obtained by clean catch procedure / Unknown 09/10/2025 12:22 PM EDT 09/10/2025 2:09 PM EDT [facility] URINE ORDERABLES Final Result Performing Organization Address City/[facility]/ZIP Co de Phone Number [facility] [address] [place] [address] * Vitamin D 25 hydroxy (09/10/2025 12:06 PM EDT) Vitamin D, 25-OH, Total 58.6 30.0 - 80.0 ng/mL [facility] Blood specimen (specimen) Venous blood / Unknown 09/10/2025 12:06 PM EDT 09/10/2025 2:09 PM EDT [facility] BLOOD ORDERABLES Final Result Performing Organization Address [facility] Co de Phone Number [facility] [address] [place] [address] * (ABNORMAL) PTH, intact (09/10/2025 12:06 PM EDT) Pathologist [facility] PTH 137.1(H) 18.5 - 88.0 pcg/mL [facility] Blood specimen (specimen) Venous blood / Unknown 09/10/2025 12:06 PM EDT 09/10/2025 2:09 PM EDT [facility] BLOOD ORDERABLES Final Result Performing Organization Address [facility] de Phone Number [facility] [address] [place] [address] * (ABNORMAL) Renal function panel (09/10/2025 12:06 PM EDT) Sodium 142 133 - 145 mmol/L [facility] Potassium 4.0 3.5 - 5.5 mmol/L [facility] Chloride 108 96 - 110 mmol/L [facility] Bicarbonate (CO2) 25 21 - 32 mmol/L [facility] Anion Gap 9 3 - [address] [facility] Glucose 100 70 - 100 mg/dL [facility] BUN 17 5 - 25 mg/dL [facility] Creatinine Serum 1.39(H) 0.50 - 1.10 mg/dL [facility] eGFR 36(L) >=60 mL/min/1. 73m2 [facility] Comment:Calculation based on the Chronic Kidney Disease Epidemiology Collaboration (CKD-EPI) equation refit without adjustment for race. BUN/Creatinine Ratio 12.2 [facility] Albumin 3.4 3.2 - 5.0 g/dL [facility] Calcium 9.2 8.5 - 10.5 mg/dL [facility] Phosphorus 2.9 2.5 - 4.5 mg/dL [facility] Blood specimen (specimen) Venous blood / Unknown 09/10/2025 12:06 PM EDT 09/10/2025 2:09 PM EDT [facility] BLOOD ORDERABLES Final Result [facility] [facility] [address] [place] [address] from Last 3 Months Insurance Medicare [facility] Medicare [facility] Care Teams Label Cutter Relationship Specialty Start Date End Date Diony Ga DO [address] [place] [address] PCP - General Internal Medicine 11/16/22
--- OUTSIDE RECORDS SUMMARY | 2025-10-29 14:53 | XMS_ITS | Clinical Summary ---
Author Organization [facility] Address [address] [place] [address] Phone Care Team Providers Care Core Winder Machine Operator Name Role Phone Diony Ga DO Primary Care Provider [phone] Allergies Active Allergy Reactions Criticality Noted Date Comments Codeine Dizziness,Other 12/27/2022 Fexofenadine Other 12/27/2022 Other reaction(s): shaking Nitrofurantoin Other 12/27/2022 Nitrofurantoin Monohyd/M-Cryst Unknown 04/10/2025 Medications memantine (NAMENDA XR) 14 mg extended release capsule Take 1 capsule (14 mg total) by mouth 1 (one) time each day. 07/03/20 24 Active denosumab (PROLIA SUBQ) Inject under the skin every 6 (six) months. Active cyanocobalamin, vitamin B-12, (VITAMIN B-12 SL) Take 1,000 mcg by mouth. Active coenzyme Q-10 100 mg capsule Take 1 capsule (100 mg total) by mouth 1 (one) time each day. Active apixaban (Eliquis) 2.5 mg tablet TAKE 1 TABLET EVERY 12 HOURS 180 tablet 3 08/04/20 25 Active metoprolol succinate (TOPROL-XL) 50 mg 24 hr tablet TAKE 1 TABLET TWICE A DAY 180 tablet 3 08/18/20 25 Active donepeziL (ARICEPT) 10 mg tablet Take 1 tablet (10 mg total) by mouth at bedtime. 09/09/20 25 Active valsartan (DIOVAN) 160 mg tablet TAKE 1 TABLET ONCE DAILY 90 tablet 3 09/14/20 25 Active dilTIAZem (TIAZAC) 180 mg 24 hr capsuleIndicatio ns:Primary hypertension TAKE 1 CAPSULE DAILY 90 capsule 1 10/14/20 Active simvastatin (ZOCOR) 40 mg tablet Take 1 tablet (40 mg total) by mouth 1 (one) time each day in the evening. 12/30/19 025 Discontinued(Di scontinued by another clinician) dilTIAZem (TIAZAC) 180 mg 24 hr capsule TAKE 1 CAPSULE DAILY 90 capsule 1 03/26/20 025 Discontinued Active Problems Problem Noted Date Diagnosed Date History of breast cancer 04/10/2025 GRACE (obstructive sleep apnea) 04/10/2025 Secondary hypercoagulable state 04/10/2025 Assessment & Plan (04/10/2025 6:36 PM EDT): NSVT (nonsustained ventricular tachycardia) 03/14 Assessment & Plan (04/10/2025 6:36 PM EDT): The patient has had two isolated episodes of NSVT, once in 07/2024 and once more recently in 02/2025. She was apparently asymptomatic but had recently been on prednisone which may have contributed but is unclear. Labs were unrevealing. We will continue to monitor her device for further episodes and readdress as indicated. Sick sinus syndrome 08/21/2023 Assessment & Plan (04/10/2025 6:36 PM EDT): Now status post pacemaker; continue with in office and remote device checks as per device clinic protocol. Stage 3 chronic kidney disease 12/27/2022 Atrial fibrillation 10/12/2021 Overview (04/10/2025): Last Assessment & Plan: Rate is controlled on BB and CCB, anticoagulated on warfarin. She understands risks and benefits of anticoagulation and wished to continue. Assessment & Plan (04/10/2025 6:36 PM EDT): Rate is well-controlled on diltiazem and metoprolol; she will continue that change. She has been maintained on Eliquis 2.5 mg twice daily for cardioembolic prophylaxis; we reviewed the risks and benefits of continuing with anticoagulation and the patient/her wish to continue with current plan. However, her creatinine around 1.5; her most recent being on 03/18/2025 was 1.4. Given that her weight is greater than 60 kilograms and her age is greater than 80 years, she would qualify for normal dosing of Eliquis at 5 mg twice daily. We discussed this at length today and they are aware that depending on fluctuations in her renal function, she may be subtherapeutic on 2.5 mg twice daily putting her at increased risk for a cardioembolic event; alternatively, if we increased Eliquis to 5 mg twice daily and her creatinine were to rise, her dose may be too high and she would be at an increased risk of bleeding. Ultimately, they like to continue Eliquis 2.5 mg twice daily and verbalize understanding of the risks of doing so. They are aware to seek urgent medical attention for any uncontrolled bleeding, signs or symptoms of GI or other internal bleeding, or for any head injury. Hyperlipidemia 10/12/2021 Overview (04/10/2025): Last Assessment & Plan: Last lipid panel 10/02 total cholesterol 131, HDL 47, LDL 54. Continue statin. Assessment & Plan (04/10/2025 6:36 PM EDT): Continue atorvastatin; they report her lipid are typically monitored by her PCP office and recently had labs completed which we unfortunately do not have available for review at the time of this visit. Pacemaker 10/12/2021 Overview (04/10/2025): Last Assessment & Plan: Device check as above. Stable. Assessment & Plan (04/10/2025 6:36 PM EDT): Peripheral vascular disease 10/12/2021 Primary hypertension 10/12/2021 Overview (04/10/2025): Last Assessment & Plan: Controlled, runs on the low side of normal since adding diltiazem for better rate control. She is asymptomatic with this and feeling well. Assessment & Plan (04/10/2025 6:36 PM EDT): Blood pressure was initially elevated but much improved on recheck; they were running late to their visit today and Sarahy admits to rushing her, believing this to be the reason her BP was initially so elevated. He will continue to check her BP intermittently at home but it appears to be well controlled and hypertension does not appear to be the current cause for her frequent headaches. Continue diltiazem, valsartan, and metoprolol. She will continue to follow with nephrology as recommended. Encounters Date Type Department Care Team Description 10/22/2025 Telephone [facility] [address] [place] [address] Nupur Pressley [place] 09/10/2025 12:05 PM EDT Lab Draw Station - [address] [address] Chronic kidney disease (CKD) stage G3b/A1, moderately decreased glomerular filtration rate (GFR) between 30-44 mL/min/1.73 square meter and albuminuria creatinine ratio les* (CMS/HCC V24, CMS/HCC V28) (Primary Dx); NSVT (nonsustained ventricular tachycardia) (CMS/HCC V24, CMS/HCC V28); VT (ventricular tachycardia) (CMS/HCC V24, CMS/HCC V28) 09/10/2025 Results Follow-Up [facility] [address] [place] [address] Claudia Fuentes NP 09/09/2025 8:50 AM EDT Ancillary Procedure [facility] [address] [place] [address] 09/09/2025 Telephone [facility] [address] [place] [address] Nasrin Vanegas PA 09/01/2025 1:30 PM EDT Ancillary Procedure [facility] [address] [place] [address] Encounter for adjustment or management of cardiac device 08/23/2025 8:30 PM EDT Ancillary Procedure [facility] [address] [place] [address] from Last 3 Months Immunizations Immunization Administration Dates Next Due Pfizer SARS-CoV-2 COVID-19, mRNA, LNP-S, preservative free 01/13/2021,12/23/2020 Social History Tobacco Use Types Packs/Day Years [...] Sign Reading Time Taken Comments Blood Pressure 122/80 04/10/2025 11:24 AM EDT Pulse 77 04/10/2025 11:02 AM EDT Temperature 36.7 C (98 F) 01/30/2025 10:54 PM EDT Respiratory Rate 18 01/30/2025 10:54 PM EDT Oxygen Saturation 95% 04/10/2025 11:02 AM EDT Inhaled Oxygen Concentration - - Weight 66.4 kg (146 lb 6.4 oz) 04/10/2025 11:02 AM EDT Height 157.5 cm (5' 2 ) 04/10/2025 11:02 AM EDT Body Mass Index 26.78 04/10/2025 11:02 AM EDT Plan of Treatment Upcoming Encounters Date Type Department Care Team (Late st Contact Info) Description 09/01/2026 1:30 PM EDT Ancillary Procedure [facility] [address] [place] [id number] Health Maintenance Due Date Last Done Comments DTaP,Tdap,and Td Vaccines (1 - Tdap) 1954 Pneumococcal Vaccine: 50+ Years (1 of 2 - PCV) 1954 Zoster Vaccines (1 of 2) 1954 Cholesterol Screening (Lipid Panel) 10/21/2022 Falls Risk Assessment 10/21/2022 Medicare Annual Wellness Visit 10/21/2022 Osteoporosis Screening (Bone Density Screening) 10/21/2022 Social Influencers of Health Screening 10/21/2022 Depression Screening 11/12/2024 COVID-19 Vaccine ( season) 2025 04/14/2022, 09/05/2021, 01/13/2021, Additional history exists Hypertension/CHF/CAD Annual BMP Blood Test 09/10/2026 09/10/2025, 09/10/2025, 07/28/2025, Additional history exists RSV Immunization Adult Patients Completed 11/24/2024 Influenza Vaccine Completed 07/27/2025, , 08/09/2023, Additional history exists HIB Vaccines Aged Out No longer eligi ble based on patient's age to complete this topic HPV Vaccines Aged Out No longer eligi ble based on patient's age to complete this topic Hepatitis A Vaccines Aged Out No long er eligible based on patient's age to complete this topic Hepatitis B Vaccines Aged Out No long er eligible based on patient's age to complete this topic IPV Vaccines Aged Out No longer eligi ble based on patient's age to complete this topic MMR Vaccines Aged Out No longer eligi ble based on patient's age to complete this topic Meningococcal ACWY Vaccine Aged Out N o longer eligible based on patient's age to complete this topic Meningococcal B Vaccine Aged Out No l onger eligible based on patient's age to complete this topic RSV Immunization Patients Under 20 months Aged Out No longer eligible based on patient's age to complete this topic Varicella Vaccines Aged Out No longer eligible based on patient's age to complete this topic Medical Devices Implanted Type Area Sheep Farm Manager Device Identifier Shelf Expiration Date Model / Serial / Lot Abbt-Stju 1272 Assurity Mri(Tm) [id number] Implanted: (Quantity not on file) Cardiac Pacemaker Left: Chest [employer] [facility]- [employer] 1272 ASSURITY MRI(TM) / [id number] / [employer] [place]Stju Assurity Mri [id number] Implanted: (Quantity not on file) Cardiac Pacemaker [employer] [employer] ASSURITY MRI 1272 / [id number] / Procedures Procedure Name Priority Date/Time Associated Diagnosis Comments PROTEIN AND CREATININE WITH RATIO, URINE Routine 09/10/2025 12:22 PM EDT NSVT (nonsustained ventricular tachycardia) (CMS/HCC V24, CMS/HCC V28) VT (ventricular tachycardia) (CMS/HCC V24, CMS/HCC V28) Chronic kidney disease (CKD) stage G3b/A1, moderately decreased glomerular filtration rate (GFR) between 30-44 mL/min/1.73 square meter and albuminuria creatinine ratio les* (CMS/HCC V24, CMS/HCC V28) MICROALBUMIN CREATININE URINE RATIO Routine 09/10/2025 12:22 PM EDT NSVT (nonsustained ventricular tachycardia) (CMS/HCC V24, CMS/HCC V28) VT (ventricular tachycardia) (CMS/HCC V24, CMS/HCC V28) Chronic kidney disease (CKD) stage G3b/A1, moderately decreased glomerular filtration rate (GFR) between 30-44 mL/min/1.73 square meter and albuminuria creatinine ratio les* (CMS/HCC V24, CMS/HCC V28) VITAMIN D 25 HYDROXY Routine 09/10/2025 12:06 PM EDT NSVT (nonsustained ventricular tachycardia) (CMS/HCC V24, CMS/HCC V28) VT (ventricular tachycardia) (CMS/HCC V24, CMS/HCC V28) Chronic kidney disease (CKD) stage G3b/A1, moderately decreased glomerular filtration rate (GFR) between 30-44 mL/min/1.73 square meter and albuminuria creatinine ratio les* (CMS/HCC V24, CMS/HCC V28) RENAL FUNCTION PANEL Routine 09/10/2025 12:06 PM EDT NSVT (nonsustained ventricular tachycardia) (CMS/HCC V24, CMS/HCC V28) VT (ventricular tachycardia) (CMS/HCC V24, CMS/HCC V28) Chronic kidney disease (CKD) stage G3b/A1, moderately decreased glomerular filtration rate (GFR) between 30-44 mL/min/1.73 square meter and albuminuria creatinine ratio les* (CMS/HCC V24, CMS/HCC V28) PARATHYROID HORMONE INTACT Routine 09/10/2025 12:06 PM EDT NSVT (nonsustained ventricular tachycardia) (CMS/HCC V24, CMS/HCC V28) VT (ventricular tachycardia) (CMS/HCC V24, CMS/HCC V28) Chronic kidney disease (CKD) stage G3b/A1, moderately decreased glomerular filtration rate (GFR) between 30-44 mL/min/1.73 square meter and albuminuria creatinine ratio les* (CMS/HCC V24, CMS/HCC V28) MAGNESIUM Routine 09/10/2025 12:04 PM EDT NSVT (nonsustained ventricular tachycardia) (CMS/HCC V24, CMS/HCC V28) VT (ventricular tachycardia) (CMS/HCC V24, CMS/HCC V28) BASIC METABOLIC PANEL Routine 09/10/2025 12:04 PM EDT NSVT (nonsustained ventricular tachycardia) (CMS/HCC V24, CMS/HCC V28) VT (ventricular tachycardia) (CMS/HCC V24, CMS/HCC V28) CARDIAC DEVICE CHECK- REMOTE- MURJ Routine 09/09/2025 8:49 AM EDT CARDIAC DEVICE CHECK- IN CLINIC- MURJ Routine 09/01/2025 1:39 PM EDT Encounter for adjustment or management of cardiac device CARDIAC DEVICE CHECK- REMOTE- MURJ Routine 08/23/2025 8:25 PM EDT from Last 3 Months Results * Protein and creatinine with ratio, urine (09/10/2025 12:22 PM EDT) Protein, Urine 20 mg/dL LAB CHEMISTRY METHOD 09/10/2025 4:23 PM EDT [facility] Prot/Creat, Ur 0.10 <=0.20 mg/mg creat LAB CHEMISTRY METHOD 09/10/2025 4:23 PM EDT [facility] Creatinine, Urine 195.0 mg/dL LAB CHEMISTRY METHOD 09/10/2025 4:23 PM T [facility] Urine Urine specimen obtained by clean catch procedure / Unknown Non-blood Collection / Unknown 09/10/2025 12:22 PM EDT 09/10/2025 12:22 PM EDT Deirdre Banuelos [facility] URINE ORDERABLES Final R esult Performing Organization Address City/[facility]/ZIP Co de Phone Number [facility] [address] [place] [address], [place] [phone] * Microalbumin creatinine urine ratio (09/10/2025 12:22 PM EDT) Creatinine, Urine 195.0 mg/dL LAB CHEMISTRY METHOD 09/10/2025 4:32 PM EDT [facility] Microalb, Ur 11.7 0.0 - 29.0 mg/L LAB CHEMISTRY METHOD 09/10/2025 4:32 PM EDT [facility] Microalb/Creat Ratio 6 <30 mg/g creat LAB CHEMISTRY METHOD 09/10/2025 4:32 PM EDT [facility] Urine Urine specimen obtained by clean catch procedure / Unknown Non-blood Collection / Unknown 09/10/2025 12:22 PM EDT 09/10/2025 12:22 PM EDT Deirdre [facility] LAB URINE ORDERABLES Final R esult Performing Organization Address City/[facility]/ZIP Co de Phone Number [facility] [address] [place] [address], [place] [phone] * Vitamin D 25 hydroxy (09/10/2025 12:06 PM EDT) Vit D, 25-Hydroxy 58.6 30.0 - 80.0 ng/mL LAB CHEMISTRY METHOD 09/10/2025 4:19 PM EDT [facility] Blood Venous blood specimen / Unknown Venipuncture / Unknown 09/10/2025 12:06 PM EDT 09/10/2025 12:06 PM EDT [facility] BLOOD ORDERABLES Final R esult Performing Organization Address City/[facility]/ZIP Co de Phone Number [facility] [address] [place] [address], [place] [phone] * (ABNORMAL) Parathyroid hormone intact (09/10/2025 12:06 PM EDT) Pathologist [facility] PTH 137.1(H) 18.5 - 88.0 pcg/mL LAB CHEMISTRY METHOD 09/10/2025 4:19 PM EDT [facility] Blood Venous blood specimen / Unknown Venipuncture / Unknown 09/10/2025 12:06 PM EDT 09/10/2025 12:06 PM EDT [facility] LAB BLOOD ORDERABLES Final R esult Performing Organization Address City/[facility]/ZIP Co de Phone Number [facility] [address] [place] [address], [place] [phone] * (ABNORMAL) Renal function panel (09/10/2025 12:06 PM EDT) Pathologist [facility] Sodium 142 133 - 145 mmol/L LAB CHEMISTRY METHOD 09/10/2025 3:39 PM EDT [facility] Potassium 4.0 3.5 - 5.5 mmol/L LAB CHEMISTRY METHOD 09/10/2025 3:39 PM EDT [facility] Chloride 108 96 - 110 mmol/L LAB CHEMISTRY METHOD 09/10/2025 3:39 PM EDT [facility] CO2 25 21 - 32 mmol/L LAB CHEMISTRY METHOD 09/10/2025 3:39 PM EDT [facility] Anion Gap 9 3 - 11 LAB CHEMISTRY METHOD 09/10/2025 3:39 PM EDT [facility] Glucose 100 70 - 100 mg/dL LAB CHEMISTRY METHOD 09/10/2025 3:39 PM EDT [facility] BUN 17 5 - 25 mg/dL LAB CHEMISTRY METHOD 09/10/2025 3:39 PM EDT [facility] Creatinine 1.39(H) 0.50 - 1.10 mg/dL LAB CHEMISTRY METHOD 09/10/2025 3:39 PM EDT [facility] eGFR 36(L) >=60 mL/min/1. 73m2 LAB CHEMISTRY METHOD 09/10/2025 3:39 PM EDT [facility] Comment:Calculation based on the Chronic Kidney Disease Epidemiology Collaboration (CKD-EPI) equation refit without adjustment for race. BUN/Creatinine Ratio 12.2 LAB CHEMISTRY METHOD 09/10/2025 3:39 PM EDT [facility] Albumin 3.4 3.2 - 5.0 g/dL LAB CHEMISTRY METHOD 09/10/2025 3:39 PM EDT [facility] Calcium 9.2 8.5 - 10.5 mg/dL LAB CHEMISTRY METHOD 09/10/2025 3:39 PM EDT [facility] Phosphorus 2.9 2.5 - 4.5 mg/dL LAB CHEMISTRY METHOD 09/10/2025 3:39 PM EDT [facility] Blood Venous blood specimen / Unknown Venipuncture / Unknown 09/10/2025 12:06 PM EDT 09/10/2025 12:06 PM EDT Deirdre Banuelos [facility] BLOOD ORDERABLES Final R esult [facility] [address] [place] [address], * Magnesium (09/10/2025 12:04 PM EDT) Magnesium 2.1 1.9 - 2.6 mg/dL LAB CHEMISTRY METHOD 09/10/2025 4:21 PM EDT [facility] Blood Venous blood specimen / Unknown Venipuncture / Unknown 09/10/2025 12:04 PM EDT 09/10/2025 12:04 PM EDT Claudia Fuentes NP LAB BLOOD ORDERABLES Final Result [facility] [address] [place] [address], * (ABNORMAL) Basic metabolic panel (09/10/2025 12:04 PM EDT) Sodium 143 133 - 145 mmol/L LAB CHEMISTRY METHOD 09/10/2025 4:21 PM [facility] Potassium 4.1 3.5 - 5.5 mmol/L LAB CHEMISTRY METHOD 09/10/2025 4:21 PM [facility] Chloride 108 96 - 110 mmol/L LAB CHEMISTRY METHOD 09/10/2025 4:21 PM [facility] CO2 29 21 - 32 mmol/L LAB CHEMISTRY METHOD 09/10/2025 4:21 PM [facility] Anion Gap 6 3 - 11 LAB CHEMISTRY METHOD 09/10/2025 4:21 PM [facility] Glucose 102(H) 70 - 100 mg/dL LAB CHEMISTRY METHOD 09/10/2025 4:21 PM [facility] BUN 17 5 - 25 mg/dL LAB CHEMISTRY METHOD 09/10/2025 4:21 PM [facility] Creatinine 1.35(H) 0.50 - 1.10 mg/dL LAB CHEMISTRY METHOD 09/10/2025 4:21 PM [facility] eGFR 38(L) >=60 mL/min/1. 73m2 LAB CHEMISTRY METHOD 09/10/2025 4:21 PM [facility] Comment:Calculation based on the Chronic Kidney Disease Epidemiology Collaboration (CKD-EPI) equation refit without adjustment for race. BUN/Creatinine Ratio 12.6 LAB CHEMISTRY METHOD 09/10/2025 4:21 PM EDT [facility] Calcium 9.5 8.5 - 10.5 mg/dL LAB CHEMISTRY METHOD 09/10/2025 4:21 PM EDT [facility] Blood Venous blood specimen / Unknown Venipuncture / Unknown 09/10/2025 12:04 PM EDT 09/10/2025 12:04 PM EDT Claudia Fuentes NP LAB BLOOD ORDERABLES Final Result [facility] ([facility]) [facility] [address] [place] [address], * Cardiac device check - Remote- MURJ (09/09/2025 8:49 AM EDT) Only the most recent of2 resultswithin the time period is included. Date Time Interrogation Session [id number] CV DEVICE CHECK Type Interrogation Session Remote Scheduled CV DEVICE CHECK Implantable Pulse Generator Sheep Farm Manager [employer]pit CV DEVICE CHECK Implantable Pulse Generator Type IPG CV DEVICE CHECK Implantable Pulse Generator Model 1272 Assurity MRI(TM) CV DEVICE CHECK Implantable Pulse Generator Serial Number [id number] CV DEVICE CHECK Implantable Pulse Generator Implant Date 20190627 CV DEVICE CHECK Battery Remaining Percentage 53.00 CV DEVICE CHECK Battery Remaining Longevity 62.0 CV DEVICE CHECK Battery Voltage 2.990 CV D EVICE CHECK Battery PARTS AND SERVICE MANAGER Trigger 2.600 CV DEVICE CHECK Battery Status Middle of Service CV DEVICE CHECK Raudel Statistic RV Percent Paced 82.00 CV DEVICE CHECK Lead Channel Sensing Intrinsic Amplitude 5.000 CV DEVICE CHECK Lead Channel Setting Sensing Sensitivity 2.00 CV DEVICE CHECK Lead Channel Impedance Value 440 CV DEVICE CHECK Lead Channel Pacing Threshold Amplitude 1.000 CV DEVICE CHECK Lead Channel Pacing Threshold Pulse Width 0.8 CV DEVICE CHECK Lead Channel RV Pacing Threshold Date 2025-09-09 CV DEVICE CHECK Lead Channel Setting Pacing Amplitude 1.250 CV DEVICE CHECK Lead Channel Setting Pacing Pulse Width 0.8 CV DEVICE CHECK Raudel Setting Mode (NBG Code) VVIR CV DEVICE CHECK Raudel Setting Lower Rate Limit 60 CV DEVICE CHECK Raudel Setting Maximum Sensor Rate 110 CV DEVICE CHECK Date of Service 2025-12-01 CV DEVICE CHECK Anatomical Region Laterality Modality Device Interroga tion 09/09/2025 3:32 AM EDT Impressions 09/09/2025 8:46 AM EDT Non-sustained Ventricular Tachycardia * Stored EGMs are consistent with or suggestive of Non-sustained VT * Total episodes: 1 15 beats Narrative Procedure Note Nasrin Vanegas PA - 09/09/2025 IMPRESSION: Non-sustained Ventricular Tachycardia * Stored EGMs are consistent with or suggestive of Non-sustained VT * Total episodes: 1 15 beats Nasrin ORTEGA CV IMPLANTABLE CARDIAC DEVICE AK OCEDURES Final Result * CARDIAC DEVICE CHECK- IN CLINIC- [facility] [place] (09/01/2025 1:39 PM EDT) Date Time Interrogation Session [id number] CV DEVICE CHECK Implantable Pulse Generator Sheep Farm Manager St[employer]Arpit CV DEVICE CHECK Implantable Pulse Generator Type IPG CV DEVICE CHECK Implantable Pulse Generator Model Assurity MRI 1272 CV DEVICE CHECK Implantable Pulse Generator Serial Number [id number] CV DEVICE CHECK Implantable Pulse Generator Implant Date 20190627 CV DEVICE CHECK Battery Voltage 2.990 CV D EVICE CHECK Battery Status Middle of Service CV DEVICE CHECK Raudel Statistic RV Percent Paced 80.00 CV DEVICE CHECK Lead Channel Sensing Intrinsic Amplitude 6.000 CV DEVICE CHECK Lead Channel Setting Sensing Sensitivity 2.00 CV DEVICE CHECK Lead Channel Impedance Value 430 CV DEVICE CHECK Lead Channel Pacing Threshold Amplitude 1.000 CV DEVICE CHECK Lead Channel Pacing Threshold Pulse Width 0.8 CV DEVICE CHECK Lead Channel RV Pacing Threshold Date 2025-09-01 CV DEVICE CHECK Lead Channel Setting Pacing Amplitude 1.130 CV DEVICE CHECK Lead Channel Setting Pacing Pulse Width 0.8 CV DEVICE CHECK Raudel Setting Mode (NBG Code) VVIR CV DEVICE CHECK Raudel Setting Lower Rate Limit 60 CV DEVICE CHECK Raudel Setting Maximum Sensor Rate 110 CV DEVICE CHECK Date of Service 2026-08-25 CV DEVICE CHECK Anatomical Region Laterality Modality Device Interroga tion 09/01/2025 Impressions 09/02/2025 3:18 PM EDT Normal In-Office: No Events * Normal Device Function * Alerts or events: None * Battery: MOS, 4.60 yrs * Sensing, impedance and thresholds reviewed and tested * Presenting Rhythm: INFLATED PAD BUFFER 70's * Underlying Rhythm: VS 60's * Heart Rate Histograms reviewed * Pacing and Detection Parameters were evaluated Narrative Procedure Note Blas Gonzalez MD - 09/02/2025 IMPRESSION: Normal In-Office: No Events * Normal Device Function * Alerts or events: None * Battery: MOS, 4.60 yrs * Sensing, impedance and thresholds reviewed and tested * Presenting Rhythm: INFLATED PAD BUFFER 70's * Underlying Rhythm: VS 60's * Heart Rate Histograms reviewed * Pacing and Detection Parameters were evaluated us Order Referral Cardiovascular CV IMPLANTABLE CAR DIAC DEVICE PROCEDURES Final Result from Last 3 Months Insurance MEDICARE [facility] Advance Directives Documents on File Type Date Recorded Patient Stacker Operator Expl anation Health Care Decision (hx) 09/07/2022 AD BEAL DIRECTIVE Health Care Decision (hx) 09/07/2022 AD BEAL DIRECTIVE Health Care Decision (hx) 09/07/2022 AD BEAL DIRECTIVE Health Care Decision (hx) 09/07/2022 AD BEAL DIRECTIVE Health Care Decision (hx) 09/07/2022 AD BEAL DIRECTIVE Health Care Decision (hx) 09/07/2022 AD BEAL DIRECTIVE Health Care Decision (hx) 09/07/2022 AD BEAL DIRECTIVE Health Care Decision (hx) 08/24/2022 AD BEAL DIRECTIVE Health Care Decision (hx) 08/24/2022 AD BEAL DIRECTIVE Health Care Decision (hx) 08/24/2022 AD BEAL DIRECTIVE Health Care Decision (hx) 08/24/2022 AD BEAL DIRECTIVE Health Care Decision (hx) 08/24/2022 AD BEAL DIRECTIVE Health Care Decision (hx) 08/24/2022 AD BEAL DIRECTIVE Health Care Decision (hx) 08/24/2022 AD BEAL DIRECTIVE Care Teams Core Winder Machine Operator Relationship Specialty Start Date End Date Diony Ga DO [address] [place] [id number] PCP - General 09/26/12
== END 2025-10-29 12:49 | disposition home or self-care (01) ==
LOC: HO.HSMS 11:21
PROVIDERS: PCP Internal Medicine; Visit Provider Psychiatry & Neurology Neurology
DX: F03.90 Unspecified dementia, unspecified severity, without behavioral disturbance, psychotic disturbance, mood disturbance, and anxiety (principal); R41.0 Disorientation, unspecified; M54.2 Cervicalgia; R51.9 Headache, unspecified; G89.29 Other chronic pain
CPT/HCPCS: 99214

== ENCOUNTER → 2025-10-29 11:20 | Outpatient (BNVA) | payer MEDICARE, BC, SELFPAY | PROVIDERS: PCP Internal Medicine; Visit Provider Psychiatry & Neurology Neurology | DX: F03.90 Unspecified dementia, unspecified severity, without behavioral disturbance, psychotic disturbance, mood disturbance, and anxiety (principal); R41.0 Disorientation, unspecified; M54.2 Cervicalgia; R51.9 Headache, unspecified; G89.29 Other chronic pain | CPT/HCPCS: 99212 ==